=== PATIENT | female | born 2000 ===

== ENCOUNTER 2022-03-14 16:02 | Outpatient (CLI) | payer OTHER | END 2022-03-14 18:00 | disposition home or self-care (01) | LOC: PRENATAL 16:02 | PROVIDERS: ATTEND Obstetrics & Gynecology Maternal & Fetal Medicine | DX: O35.0XX0 Maternal care for (suspected) central nervous system malformation in fetus, not applicable or unspecified (principal); O35.3XX0 Maternal care for (suspected) damage to fetus from viral disease in mother, not applicable or unspecified; Z3A.24 24 weeks gestation of pregnancy; O28.1 Abnormal biochemical finding on antenatal screening of mother; O99.891 Other specified diseases and conditions complicating pregnancy ==